=== PATIENT | male | born 2000 | race Caucasian/White ===

== ENCOUNTER 2021-07-04 07:33 | Inpatient (IN) | payer BC ==
--- NOTE | 2021-07-04 07:58 | ED ---
Psych HPI - General Chief Complaint: Psychiatric Symptoms Stated Complaint: mental health Time Seen by Provider: 07/04/21 07:41 Source: patient, family, police, RN notes reviewed Mode of arrival: ambulatory - History of Present Illness Initial Comments: This is a 20-year-old male with no apparent prior history of depression and suicidal thoughts to recently become disengaged from education pursues he dropped out of high school he recently quit his job and he was brought in by police after being away from his house all night and outside showing depressed and having suicidal thoughts. He's been taxing people to say goodbye. He does not seem to have a plan at this time for harming himself however. He denies any recent drugs or alcohol. Fevers chills nausea vomiting sweats except for feeling chilled right now from being outside all night. Current complaints or modifying factors. Patient was brought in by police and is been petitioned by his family. MD Complaint: suicidal ideation, feels depressed - Related Data Home Medications Medication Instructions Recorded Confirmed No Known Home Medications 07/04/21 07/04/21 Allergies Allergy/AdvReac Type Severity Reaction Status Date / Time No Known Allergies Allergy Verified 07/04/21 08:39 Review of Systems ROS Statement: Those systems with pertinent positive or pertinent negative responses have been documented in the HPI. ROS Other: All systems not noted in ROS Statement are negative. Past Medical History Past Medical History: No Reported History History of Any Multi-Drug Resistant Organisms: None Reported Past Surgical History: Adenoidectomy Past Psychological History: Anxiety, Depression Smoking Status: Never smoker Past Alcohol Use History: None Reported Past Drug Use History: Marijuana General Exam - General Exam Comments Initial Comments: Physical well-developed asthenic appearing male who is awake alert oriented 3 Limitations: no limitations General appearance: alert, in no apparent distress Head exam: Present: atraumatic, normocephalic, normal inspection Eye exam: Present: normal appearance, PERRL, EOMI. Absent: scleral icterus, conjunctival injection, periorbital swelling ENT exam: Present: normal exam, mucous membranes moist Neck exam: Present: normal inspection, full ROM. Absent: tenderness, meningismus, lymphadenopathy Respiratory exam: Present: normal lung sounds bilaterally. Absent: respiratory distress, wheezes, rales, rhonchi, stridor Cardiovascular Exam: Present: regular rate, normal rhythm, normal heart sounds. Absent: systolic murmur, diastolic murmur, rubs, gallop, clicks GI/Abdominal exam: Present: soft, normal bowel sounds. Absent: distended, tenderness, guarding, rebound, rigid Extremities exam: Present: normal inspection, full ROM, normal capillary refill. Absent: tenderness, pedal edema, joint swelling, calf tenderness Back exam: Present: normal inspection Neurological exam: Present: alert, oriented X3, CN II-XII intact Psychiatric exam: Present: depressed, flat affect, suicidal ideation Skin exam: Present: warm, dry, intact, normal color. Absent: rash Course Vital Signs 07/04/21 07:34 Temperature 97.8 F Pulse Rate 72 Respiratory 18 Rate Blood Pressure 143/88 O2 Sat by Pulse 98 Oximetry Medical Decision Making - Medical Decision Making The patient was evaluated by the EPS service she will be admitted for inpatient evaluation and treatment for depression and suicidal ideation he apparently did have a planned hurt himself with a knife he is a voluntary admission. - Lab Data Lab Results 07/04/21 Range/Units 07:56 Urine Opiates Screen Not Detected (NotDetected) Ur Oxycodone Screen Not Detected (NotDetected) Urine Methadone Screen Not Detected (NotDetected) Ur Propoxyphene Screen Not Detected (NotDetected) Ur Barbiturates Screen Not Detected (NotDetected) U Tricyclic Antidepress Not Detected (NotDetected) Ur Phencyclidine Scrn Not Detected (NotDetected) Ur Amphetamines Screen Not Detected (NotDetected) U Methamphetamines Scrn Not Detected (NotDetected) U Benzodiazepines Scrn Not Detected (NotDetected) Urine Cocaine Screen Not Detected (NotDetected) U Marijuana (THC) Screen Not Detected (NotDetected) Disposition Clinical Impression: Depression, Suicidal ideation Disposition: TRANSFER TO PSYCH HOSP/UNIT Condition: Stable Referrals: None,Stated [Primary Care Provider] - 1-2 days
[2021-07-04 08:26] LABS: Amphetamine Screen,Urine Not Detected (NotDetected); Benzodiazepines Screen,Urine Not Detected (NotDetected); Cocaine Screen,Urine Not Detected (NotDetected); Opiate Screen,Urine Not Detected (NotDetected); Phencyclidine Screen,Urine Not Detected (NotDetected); Tricyclic Antidepressant,Urine Not Detected (NotDetected); Urn Cannabinoid Scrn Not Detected (NotDetected)
[2021-07-04 08:27] LABS: Barbiturate Screen,Urine Not Detected (NotDetected); Methadone Screen, Urine Not Detected (NotDetected); Oxycodone Screen, Urine Not Detected (NotDetected)
[2021-07-04] MEDS ORDERED: MAGNESIUM HYDROXIDE 2,400 MG/10 ML CUP PO PRN (10:18)
[2021-07-04] MEDS ORDERED: ACETAMINOPHEN TAB 325 MG TAB PO PRN (10:18)
[2021-07-04] MEDS ORDERED: MAG HYDROX/AL HYDROX/SIMETH 30 ML CUP PO PRN (10:18)
[2021-07-04] MEDS ORDERED: haloperidoL 1 MG TAB PO PRN (10:20)
[2021-07-04] MEDS ORDERED: HALOPERIDOL LACTATE 5 MG/ML 1 ML VIAL IM PRN (10:21)
[2021-07-04] MEDS ORDERED: LORazepam 1 MG TAB PO PRN (10:21)
[2021-07-04] MEDS ORDERED: LORazepam 2 MG/ML INJ IM PRN (10:22)
[2021-07-04] MEDS ORDERED: MELATONIN 5 MG TABLET PO PRN (12:59)
[2021-07-04] MEDS: SERTRALINE 50 MG TAB PO SCH (13:09)
--- NOTE | 2021-07-04 13:09 | P.HP ---
Psychiatric H&P - . H&P Date: 07/04/21 History & Physical: Allergies Allergy/AdvReac Type Severity Reaction Status Date / Time No Known Allergies Allergy Verified 07/04/21 12:43 Vital Signs Temp 98.5 F 07/04/21 10:38 Pulse 65 07/04/21 10:38 Resp 18 07/04/21 10:38 BP 111/65 07/04/21 10:38 Pulse Ox 98 07/04/21 10:38 Intake & Output 07/03/21 07/04/21 07/04/21 18:59 06:59 18:59 Weight 58.695 kg Laboratory Last Values Urine Opiates Screen Not Detected (NotDetected) 07/04/21 07:56 Ur Oxycodone Screen Not Detected (NotDetected) 07/04/21 07:56 Urine Methadone Screen Not Detected (NotDetected) 07/04/21 07:56 Ur Propoxyphene Screen Not Detected (NotDetected) 07/04/21 07:56 Ur Barbiturates Screen Not Detected (NotDetected) 07/04/21 07:56 U Tricyclic Antidepress Not Detected (NotDetected) 07/04/21 07:56 Ur Phencyclidine Scrn Not Detected (NotDetected) 07/04/21 07:56 Ur Amphetamines Screen Not Detected (NotDetected) 07/04/21 07:56 U Methamphetamines Scrn Not Detected (NotDetected) 07/04/21 07:56 U Benzodiazepines Scrn Not Detected (NotDetected) 07/04/21 07:56 Urine Cocaine Screen Not Detected (NotDetected) 07/04/21 07:56 U Marijuana (THC) Screen Not Detected (NotDetected) 07/04/21 07:56 07/04/21 13:03 IDENTIFYING DATA: Patient is a 20-year-old male is currently single has no kids lives with his stepmom and dad in the house currently is attending school HPI: Patient presented to the hospital yesterday after apparently being picked up by the police for a texting his friends and family and telling them "goodbye". Patient was admitted to the psychiatric unit for further evaluation and treatment. He has no significant psychiatric history and no previous psyc hiatric admissions. Patient was fairly monotone and spoke in a soft tone of voice. He was guarded/evasive and had poor eye contact during the interview. He claims that he was having "problems with my family" however did not elaborate more on any stressors or significant triggers in his life. He states that he message saying goodbye and was planning to commit suicide yesterday at night. He states that he had planned to stab himself with a kitchen knife. He claims that he was in a park when this occurred and he told his family and they called the police and he got picked up and taken the hospital. He states that he did not do it because "it wasn't a good way to do it". His UDS was negative for any substances. He states that he is feeling depressed and anxious for the past 2 years and also was endorsing suicidal ideations for the past 2 years as well. He states his sleep has been "on and off" and states that his appetite has been fair. He claims that his father has guns in a safe locked away at home area and he claims that he is still having suicidal thoughts however no plan while on the unit. Patient denies any homicidal ideations intent or plan. At this time patient den ies any auditory or visual hallucinations. Patient denies any flight of ideas racing thoughts and increased in goal directed behavior. Patient admits to using no recreational drugs or cigarettes. PAST PSYCHIATRIC HISTORY: Patient states that he has a history of depression and anxiety. Patient denies being on any psychiatric medications. Patient denies any previous psychiatric hospitalizations. Patient denies any psychiatric outpatient follow-up. He states that once he tried to hang himself several years ago. PMH:denies ALLERGIES: as per EMR CHEMICAL DEPENDENCY HISTORY: as per HPI FAMILY PSYCHIATRIC/SUBSTANCE USE HISTORY: denies SOCIAL HISTORY: Patient was born and raised in [place]. He states that he is currently finishing up high school credits and is currently unemployed. He states that he has never been to detention before or long term. He claims that he lives with his stepmom and father. He is single and has no kids. MENTAL STATUS EXAM: General Appearance: Patient appears to be patient, tall, stated age is alert, guarded/evasive and uncooperative at times. Patient appears to have poor hygiene and grooming. Behavior: Patient is seated without any agitated behavior. Poor eye contact. Guarded Speech: Patient's speech is soft tone of voice. Fluent. Mood/Affect: Patient reports their mood is depressed and anxious, affect is congruent and constricted. Suicidality/Homicidality: Patient denies having any homicidal ideation intent or plan. He states that he is still having suicidal thoughts however no intent or plan. Perceptions: Patient denies any visual hallucinations and denies any auditory hallucinations Though content/process: Guarded/evasive. Argumentative at times. Poor insight. Memory and concentration: AOX3, grossly intact for the purposes of this session. Can spell "WORLD" backwards Judgment and insight: poor STRENGTHS/WEAKNESSES: strength is that patient is resilient. Weakness is that patient has poor judgment and is impulsive INTELLECT: average IMPRESSIONS: Major depressive disorder, recurrent, severe without psychotic features Anxiety disorder unspecified PLAN: -Patient is admitted under voluntary status to MHU for stabilization of psychiatric symptoms and safety. Patient has signed adult voluntary form and medication consent and is placed in patient's chart. -Medications : Will start patient on Zoloft 50 mg daily for mood/anxiety. Melatonin 5 mg daily at bedtime when necessary for insomnia. -Ativan and Haldol PRN for agitation/aggression -Patient was informed of the risks, benefits and side effects of the medication and patient verbally consented to taking the medications. Patient signed med consent form and was placed in chart. -Internal Medicine consult to perform medical evaluation and physical. -NRT - not needed as patient does not smoke -SW on board for discharge planning. Encourage patient to participate in groups to work on coping skills.
--- NOTE | 2021-07-05 04:52 | P.CONS ---
History of Present Illness - Reason for Consult Consult date: 07/06/21 - History of Present Illness Patient is a 20-year-old male with no known PMH who had been brought into the emergency room under police custody due to suicidal ideation and threats of harming himself. The patient was admitted to mental health unit where he was seen and evaluated. The patient reported that he does not have any physical complaints. He denied using tobacco, alcohol, or substance abuse. Further denied chest discomfort, shortness of breath, fever, chills, nausea, vomiting, abdominal pain, diarrhea. Review of systems: Pertinent positives and negatives as discussed in HPI, a complete review of systems was performed and all other systems are negative. Physical examination: General: non toxic, no distress, appears at stated age, underweight Derm: no unusual rashes/lesions no unusual ecchymoses, warm, dry Head: atraumatic, normocephalic, symmetric Eyes: EOMI, no lid lag, anicteric sclera, pupils equal round reactive to light ENT: Nose and ears atraumatic, no thrush, no pharyngeal erythema Neck: No thyromegaly, no cervical lymphadenopathy, trachea midline, supple Mouth: no lip lesion, mucus membranes moist Cardiovascular: S1S2 reg, no murmur, positive posterior tibial pulse bilateral, no edema, capillary refill less than 2 seconds Lungs: CTA bilateral, no rhonchi, no rales , no accessory muscle use Abdominal: soft, nontender to palpation, no guarding, no appreciable organomegaly, normal bowel sounds Ext: no gross muscle atrophy, muscle strength 5 out of 5 in all 4 extremities grossly, no contractures, Neuro: CN II-XI grossly intact, light touch intact all 4 extremities, finger to nose within normal limits, Psych: Alert, oriented, appropriate affect Assessment/plan Depression and suicidal ideation -As per psychiatry Past Medical History Past Medical History: No Reported History History of Any Multi-Drug Resistant Organisms: None Reported Past Surgical History: Adenoidectomy Past Anesthesia/Blood Transfusion Reactions: No Reported Reaction Past Psychological History: Anxiety, Depression Smoking Status: Never smoker Past Alcohol Use History: Rare Additional Past Alcohol Use History / Comment(s): Patient stated he drank 3 shots for first time recently, none since. Past Drug Use History: Marijuana Additional Drug Use History / Comment(s): Patient stated smoking marijuana about 4x/month, but none in the last year. - Past Family History Father History Unknown: Yes Family Medical History: Hyperlipidemia Medications and Allergies Home Medications Medication Instructions Recorded Confirmed Type No Known Home Medications 07/04/21 07/04/21 History Allergies Allergy/AdvReac Type Severity Reaction Status Date / Time No Known Allergies Allergy Verified 07/04/21 12:43 Physical Exam Vitals: Vital Signs Temp Pulse Pulse Resp BP BP Pulse Ox 07/04/21 10:38 98.5 F 65 18 111/65 98 07/04/21 10:35 97.6 F 65 18 108/54 100 07/04/21 07:34 97.8 F 72 18 143/88 98 Intake and Output 07/04/21 07/04/21 07/05/21 14:59 22:59 06:59 Other: Weight 58.695 kg Results CBC & Chem 7: 07/05/21 07:00
[2021-07-05 07:49] LABS: ALT 15 U/L (4-49); AST 24 U/L (17-59); African American GFR (CKD) >90 (>60 ml/min/1.73 sqM); Albumin 4.3 g/dL (3.5-5.0); Alkaline Phosphatase 90 U/L (38-126); Anion Gap 6 mmol/L; Blood Urea Nitrogen 16 mg/dL (9-20); Carbon Dioxide 28 mmol/L (22-30); Chloride 105 mmol/L (98-107); Glucose 99 mg/dL (74-99); Non-African American GFR(CKD) >90 (>60 ml/min/1.73 sqM); Potassium 4.7 mmol/L (3.5-5.1); Sodium 139 mmol/L (137-145); Total Bilirubin 0.9 mg/dL (0.2-1.3)
[2021-07-05] MEDS: SERTRALINE 50 MG TAB PO SCH (08:39)
--- NOTE | 2021-07-05 10:14 | P.PN ---
Progress Note - Text Progress Note Date: 07/05/21 Interval History: Patient was seen wandering the hallways and was directable and agreeable to miguelina haney with ticket writer in the office. Patient states that he just finished talking to his father over the phone and claims that the conversation went well and that it was good to hear from him however states that "he was wondering when I'll be discharged". Patient was fairly focused on discharge during conversation. He states that he is still having suicidal thoughts and claims that they occur mainly at nighttime. He was endorsing hopelessness and worthlessness today. He states that he is still feeling depressed and somewhat anxious today. He claims the he feels the medication has not been helping him thus far. He states that he was able to sleep fairly throughout the night. He claims that he went to one activity group yesterday and was encouraged to go to more groups today. He continues to still have superficial insight into his issues and was fairly guarded about his stressors and states that "it's embarrassing and had rather not say". At this time patient denies any suicidal or homical ideations, intent or plan. Patient denies any auditory, visual hallucinations and denies any paranoia or delusions. Patient denies any side effects from the medications and has been compliant with meds. Mental Status Exam: General Appearance: Patient appears to be patient, tall, stated age is alert, guarded/evasive and mildly more cooperative today. Patient appears to have improving hygiene and grooming. Behavior: Patient is seated without any agitated behavior. Poor eye contact. Guarded Speech: Patient's speech is soft tone of voice. Fluent. Mood/Affect: Patient reports their mood is depressed and anxious, affect is congruent and constricted. Suicidality/Homicidality: Patient denies having any homicidal ideation intent or plan. He states that he is still having suicidal thoughts however no intent or plan. Perceptions: Patient denies any visual hallucinations and denies any auditory hallucinations Though content/process: Guarded/evasive. Less argumentative today. Poor insight. Focused on discharge. Memory and concentration: AOX3, grossly intact for the purposes of this session. Judgment and insight: Superficial/poor. Assessment Major depressive disorder, recurrent, severe without psychotic features Anxiety disorder unspecified Plan: -Patient continues to meet criteria for inpatient psychiatric admission for symptom stabilization and safety. Patient has signed adult voluntary form and medication consent and was placed in patient's chart. -Medications: Continue with Zoloft 50 mg daily for mood/anxiety with an increase to 100 mg starting on Thursday. Melatonin 5 mg daily at bedtime when necessary for insomnia. -When necessary Ativan and Haldol for agitation/aggression. -NRT - not needed as patient does not smoke -SW on board for discharge planning. Encouraged the patient to participate in milieu. likely discharge next week once patient improves psychiatrically. SW to gather further info from parents and ensure that guns/weapons are locked away.
[2021-07-06] MEDS: SERTRALINE 50 MG TAB PO SCH (08:09)
[2021-07-06] MEDS ORDERED: SERTRALINE 50 MG TAB PO ONE (09:00)
--- NOTE | 2021-07-06 17:20 | PN ---
PROGRESS NOTE DATE OF SERVICE: 07/06/2021. CHIEF COMPLAINT: The patient was admitted after making statements that he had suicidal thinking. He had a plan to stab himself with a kitchen knife. He had been sending messages to friends and family about his potential passing. INTERVAL HISTORY: Patient has been doing fair. He had a quiet day yesterday. He comes out on the unit. He will interact with others. He attended groups yesterday. He seems to engage in a reasonable way in the groups, though he tends to have a quiet manner. He has not had any specific complaints or concerns. Staff documented he slept 5 hours last night. Today he has been up. Overall he seems to be doing about the same. When I reviewed his history it is noteworthy that he describes that he has had suicide thoughts over a number of years. How he describes it is somewhat unusual. He says he has plans of suiciding, though he has not been sure when he would do it. He says some of the time he has had thoughts that he would get out in the world and do some certain activities and engage in things and then when that is completed, he would then follow through with his plan. He said at one point he had thought about joining the and that he would defer trying to kill himself until after he completed service. He said after thinking about that for a while, he decided there was not a good reason to wait for this eventuality. He acknowledges that in recent times the thoughts have been a little bit more intense and active. He was vague about where some of these thoughts might come from, though was at one point able to acknowledge that there have been some stressful issues in his past and that this stress relates to this kind of thinking. He stated that he was not inclined to talk about it and says that no one knows anything about it other than one friend to whom he has revealed a certain portion of the issues, but not beyond that. Apparently he had a visit from his father today, and his father shared with nurses at the end of the visit that the father was in a quandary, trying to understand where these thoughts come from that the patient has. The patient lives with his father and stepmother. It is noted that his stepmother wrote a 3-page typed letter to him expressing her concern and care for him. He felt the letter was quite a positive. He allowed me to read the letter and it was quite an open process where she talked about her own depression issues. There was some suggestion that his biologic mother may have had some difficulties. The patient himself said that he had gone for a number of years where he had no contact with his biologic mother at all, though he says they are back in some touch and it seems to be an adequate situation. He currently has been living with his father and stepmother. He says he is comfortable in the home. He has dropped out of school and says he only has a few courses left to complete his high school diploma, though he is unclear whether or not he has any interest in doing that. He says he has no interests in the future. He does not have any goals or aspirations. When I reviewed issues relating to whether he has been showing depression symptoms, he tends to minimize any symptoms that he has had. He says he sleeps 8 hours a day. He has a normal appetite. He has reasonable energy. He has not had significant anxiety or panic symptoms. He was vague about whether he may experience any posttraumatic symptoms. He denies any thought disorder issues. There are questions about issues of motivation and interest which may be depression-related. He says that he is skeptical about being on an antidepressant medication and anticipates that when he is discharged, he would not continue taking the medicine. He says he does not believe in medications and otherwise generally believes in holistic processes. He does not identify any side effects or problems relating to his Zoloft. MENTAL STATUS: Patient sat with some restlessness. He gave fairly good eye contact. He answered questions with brief responses. His thoughts were clear. He had a fairly calm though reserved manner. His affect was somewhat constricted. His mood appeared to be dysphoric, though it was difficult to determine if he was showing significant signs of depression. It was hard to assess his degree of distress. There was no immediate evidence for thought disorder other than the overall presentation of his suicide thinking. He continues to voice thoughts of harm to himself. Cognition is clear. ASSESSMENT: I will continue the current diagnosis and treatment plan. I will continue Zoloft 100 mg a day. There might be consideration for starting an antipsychotic medication, given that his manner and process relating to suicidal thinking does seem to move beyond a reality-based process. We will set up a family meeting with the patient and his father tomorrow at 1 p.m. Whether or not there are underlying PTSD issues related to the stress that he chooses not to discuss remains to be seen. We will focus on stabilization and discharge planning. SCARLETT / BORISN: [id number] /
[2021-07-07] MEDS ORDERED: SERTRALINE 100 MG TAB PO SCH (09:00)
--- NOTE | 2021-07-07 21:40 | PN ---
PROGRESS NOTE DATE OF SERVICE: 07/07/2021 CHIEF COMPLAINT: The patient was admitted after making statements that he had suicidal thinking. He had a plan to stab himself with a kitchen knife. He had been sending messages to friends and family about his potential passing. INTERVAL HISTORY: Patient has been doing fairly well. He had a quiet day yesterday. He comes out on the unit. He interacts with others. He tends to have a quiet manner. He is appropriate in his interaction with staff and peers. He has been attending groups. He slept well last night. Today he has been up. He continues the same. I had a family meeting with the patient and his father. It is noted that the father is aware of the patient's thought about suicide. This is a new revelation that the father learned, even though the patient has had thoughts this way for quite some time. From the father's standpoint, he said that he has no understanding of why the patient makes these kinds of statements, noted that the patient made suggestions that there were some trauma issues in his life that may be an impact on his situation. The patient was quite adamant about the idea that he did not want to talk to his father, myself or anyone else about the situation. He says he has shared some details with one friend, though has not talked to anyone at length about these issues. The patient acknowledges that there are some stress issues in his past that likely cause him to have some flashbacks and recurring thoughts of distress. In the meeting the patient was vague as to how active these thoughts are currently. He seemed to make at least some indications that there is some persistence of the thoughts of suicide. We had an extensive discussion regarding issues of discharge planning and what would be appropriate followup. I reviewed issues with the patient and his father as to treatment options for things such as posttraumatic stress disorder. We reviewed medications versus therapy. The patient was very much wanting to not take medications. He did not offer much explanation as to his concern about medications, though mostly would repeat the idea that he wanted to do things "naturally." When I discussed options for psychotherapy, the patient did say he was willing to be referred for therapy and that he would commit himself to going to weekly sessions for 4 sessions and see from there if he felt there was value in the therapy. It is noted that the patient's father was fairly assertive around the idea that he should talk to therapists about the issues he keeps to himself. He encouraged him to do this while he was on the psychiatric unit as well as if he were to see a psychologist. In the conversation, the patient made references to some "trauma," but would say no more about it. He did seem to suggest he was harassed or teased as a child. Whether or not that is a significant issue is unclear. Father noted he had a significant focus on wanting to gain weight, as he was quite thin. The patient also made some references to "body type," but would say no more. He talked about wanting to get training in boxing, in part as an interest and in part as something for personal protection. Hs father noted that he has issues where he will not wear a T-shirt in the summer but will only wear sweatshirts or hoodies. The father was in agreement with the idea of his getting referred for outpatient therapy as opposed to taking medications. The patient was not reporting any problems or difficulties with the medicine that he has been taking, though he did not feel it has been helpful. MENTAL STATUS EXAM: Patient gave fairly good eye contact. Psychomotor activity was a little restless. He answered questions appropriately. His thoughts were clear. He was spontaneous and interactive. His affect was fairly broad. His mood was even. He did not appear to be significantly distressed. There was no indication of thought disorder. The patient continued to make references to the idea of having thoughts about suicide, though would not discuss directly. He was oriented and alert. ASSESSMENT: I will continue the current diagnosis. I would consider a diagnosis of probably dysmorphic disorder, given some of the issues that were brought up during the family meeting. At this point, I will discontinue psychotropic medications as per patient request. We will look at options for referral for individual psychotherapy, given that the patient continues to show indications that thoughts of suicide or self-harm persist. I would look at giving him two days on the psychiatric unit to process some of the issues we discussed, especially those at the family meeting. I would get things lined up for him for a referral for individual psychotherapy and make efforts to be clear he is willing to commit himself as noted above. I would anticipate discharging the patient probably on Thursday for outpatient followup. MMODL / IJN: [id number] / YANG
[2021-07-08 07:10] VITALS: TEMP 98.1
--- NOTE | 2021-07-08 10:48 | PN ---
PROGRESS NOTE DATE OF SERVICE: 07/08/2021 CHIEF COMPLAINT: The patient was admitted after making statements that he had suicidal thinking. He had a plan to stab himself with a kitchen knife. He had been sending messages to friends and family about his potential passing. INTERVAL HISTORY: The patient has been doing fairly well overall. He comes out on the unit. He interacts with others. He attends groups. He said he did not sleep well last night because his roommate was fairly noisy. He ended up not taking medications yesterday as per the treatment plan. Today he has been up. Overall he says he does not feel any difference being off the medication. We again talked at length about a referral to psychotherapy. He continues to say he is willing to make the commitment for one month. I talked to him about the idea that it would be difficult for us to make any prediction about whether or not he would have suicidal thoughts in [address] or [address]. His response to that was that he anticipates that he would likely have those thoughts in 3 months. I discussed the potential benefits of psychotherapy and the best approach for him. MENTAL STATUS: Patient sat with a little restlessness. He gave fairly good eye contact. He answered questions appropriately. His thoughts were clear and coherent. He was interactive. His affect was a little constricted and somewhat anxious, his mood reserved though not clearly down or depressed. He did not appear to be significantly distressed. There was no indication of thought disorder. Cognition was clear. ASSESSMENT: I will continue the current diagnosis and treatment plan. As noted, given that the patient has persistent chronic suicide thinking, we need to have some caution in regard to discharge planning. As I shared with the patient, I believe the best we can do at this point is to get him connected to a therapist with his commitment that he would go to 4 sessions. Beyond that, things are unpredictable. I provided him with handouts on body dysmorphic disorder. I did not discuss in any way, though suggested he look at two [employer] videos that I presented which are from the [employer]. There is a possibility that if this is a significant issue for him that he would very likely not be able to talk about it in any direct way, at least at any time in the near future. On the other hand, if he does relate to this, the handout and videos that he could watch could be significant supports for him and give him some guidance and direction regarding this. There is the possibility that this disorder may be the critical issue for the patient. At this point I continue to anticipate discharge on Thursday. We will be looking towards setting up a positive therapy situation for the patient. SCARLETT / BRIT: [id number] /
[2021-07-09 06:45] VITALS: BP 124/59; PULSE 58; RESP 18
[2021-07-09 12:34] VITALS: BMI 16.5
--- NOTE | 2021-07-09 14:55 | PN ---
PROGRESS NOTE DATE OF SERVICE: 07/09/2021. CHIEF COMPLAINT: The patient was admitted after making statements that he had suicidal thinking. He had a plan to stab himself with a kitchen knife. He had been sending messages to friends and family about his potential passing. INTERVAL HISTORY: Patient has been doing fair. He had a quiet day yesterday. He comes out on the unit. He seems to be fairly social with others. He presents in an energetic manner. He has attended groups and seems to show good engagement in the groups. He had not been making any statements about self-harm. He slept well last night. Today he has been up. He seems to be doing about the same. He is focused on discharge tomorrow. When we talked about his thoughts relating to suicide, he continues to acknowledge that those thoughts persist. He says that he does not have any immediate intent nor does he have a plan in that regard. He does say that he has been thinking more about things that he could get engaged in and has pretty much revitalized his thoughts about the [employer]. He said that while he does not feel he has much in his own life to think about, he says that he can see there would be positives to being in a place like the where he has some the opportunity to do something significant for others. He says that he expects when he gets home that his parents may be somewhat vigilant about any issues with him as far as self-harm. He said they made not let him be in the basement. He was somewhat unclear about that. Seemed to suggest that they might not want him spending time by himself. He says that is something that he does. He continues to talk about the idea that he wants to gain weight. When I asked about the issues relating to handouts regarding body dysmorphic disorder, he says he does not think it really fits him, then he said though maybe just to a small percentage. He says he imagines that it affects everyone. He says maybe he thinks about once a day, but does not spend too much energy on those thoughts. I asked him about options for school and/or work. He said he does feel there is some obligation for finishing school partly because he knows he needs a high school diploma in order to do something like a going to the [employer]. He said that in regard to this hospitalization, he may need to sign a waiver in order to be accepted. He is going to look into making a contact with a attorney recruiter upon discharge. MENTAL STATUS EXAM: Patient sat with a little restlessness. He gave fairly good eye contact. He answered questions appropriately. His thoughts were clear, coherent and goal-directed. He was spontaneous and interactive. He was fairly thoughtful on a number of subjects that we discussed. It was noteworthy that he seemed quite engaged in the conversation and continued to talk about several issues for a fair period of time. His affect was a little constricted though not significantly so. He had a thoughtful reserved manner. He did not appear to be depressed. He did not seem distressed in any way. There was no indication of thought disorder. He continues to voice ideas about committing suicide. He is able to say that he does not have any immediate impulse in that regard. He is not able to give much detail as to what would lead him in that direction or what might be precipitating factors. It is noteworthy that he seemed to indicate a number of thoughts he has of things he would be doing when he gets out of the hospital that would be a positive positives in his life. He is oriented and oriented and alert. ASSESSMENT: I will continue the current diagnosis and treatment plan. We are setting up followup for the patient to be engaged in individual psychotherapy. I also discussed with the patient that there might be group options as well. We discussed group therapy that would be a longer-term therapy could be helpful for some people in terms of addressing more significant issues and life in a setting with others who may provide support or avenues of opening up about their own thoughts and emotions. We will make contact with the family in regard to safety issues at home. I anticipate discharging the patient tomorrow. SCARLETT / BRIT: [id number] /
[2021-07-09 16:12] LABS: Basophils # (A) 0.1 k/uL (0-0.2); Basophils % (A) 1 %; Eosinophils # (A) 0.1 k/uL (0-0.7); Eosinophils % (A) 2 %; HCT 46.2 % (39.0-53.0); HGB 15.3 gm/dL (13.0-17.5); Lymphocytes # (A) 1.4 k/uL (1.0-4.8); Lymphocytes % (A) 23 %; MCH 30.2 pg (25.0-35.0); MCHC 33.1 g/dL (31.0-37.0); MCV 91.1 fL (80.0-100.0); Mean Platelet Volume 7.4; Monocytes # (A) 0.4 k/uL (0-1.0); Monocytes % (A) 7 %; Neutrophils # (A) 4.1 k/uL (1.3-7.7); Neutrophils % (A) 66 %; Platelet Count 231 k/uL (150-450); RBC 5.07 m/uL (4.30-5.90); RDW 12.7 % (11.5-15.5); WBC 6.3 k/uL (4.0-11.0)
--- NOTE | 2021-07-10 12:26 | DS ---
DISCHARGE SUMMARY DATE OF SERVICE: 07/10/2021, DATE OF ADMISSION: 07/04/2021, DATE OF DISCHARGE: 07/10/2021 ADMISSION DIAGNOSES: 1. Major depressive disorder, recurrent, severe, without psychotic features. 2. Anxiety disorder, unspecified. DISCHARGE DIAGNOSES: 1. Persistent suicidal thinking without a clear plan. 2. Anxiety disorder. 3. Rule out body dysmorphic disorder. HISTORY OF PRESENTING ILLNESS: The patient is a 20-year-old male, he lives with his father and stepmother. He presented to the hospital apparently picked up by police as he was texting friends and family telling them "goodbye." The patient indicated that he has had thoughts of killing himself for a number of years. He says he has contemplated doing it at different times. He says that he had the idea that he would engage in some productive activity in his life, though then when that would be completed, he then would kill himself. His last thought in that direction was that he would join the [employer] and then when he got out of the [employer] he could kill himself. He said more recently he just made a decision that why should he wait until he gets out of the [employer] and why not just kill himself now. He apparently was found at home with kitchen knives. When asked about the nature of his suicidal thinking and where it comes from, he said that he does have some trauma in his life, though he chose not to discuss it. He said that he has only talked to 1 person and told a friend of his a few details about the trauma, though not much. He said other than that he has not told anybody and at this point will not talk about it to anyone. He has not had a prior psychiatric hospitalization. He has not been on any psychotropic medications. He was vague about whether he was having any current mental health symptoms. He said he was sleeping and eating okay. He did seem to have long-term issues with body image and that he would want to gain weight that was a difficult thing for him. He denied hallucinations, delusions, or paranoia. He was not indicating any significant panic issues, though he did seem to indicate that he had some posttraumatic issues related to the trauma that he would not talk about. He was admitted for further evaluation. PAST MEDICAL HISTORY: Unremarkable. FAMILY AND SOCIAL HISTORY: The patient is currently just a few credits short of graduating from high school. He is currently unemployed. He is single with no children. He lives with his father and stepmother. Apparently in his childhood at one point, his mother stopped having contact with him and this went on for a number of years. He is in touch with his biologic mother. He says that he has good relationships with his father and stepmother. MENTAL STATUS EXAM: The patient presented with poor hygiene and grooming. He had normal psychomotor activity. Speech was soft and fluent. Mood was depressed. He had anxious manner. Affect was constricted. There was no indication of thoughts of harm to others. He continued to report suicide thoughts without intent or plan. He was denying issues of thought disorder. He was oriented and alert. COURSE OF HOSPITALIZATION: Patient was admitted for comprehensive medical psychiatric and psychosocial evaluation. We engaged the patient in individual and group therapeutic activities. On admission the patient was started on Zoloft 50 mg a day. Early on in his hospitalization, the patient was somewhat withdrawn. He would come out in the day area. He would interact with others. He tended to have a quiet manner. He did attend groups. He was quite insistent on the idea that he would not take medications once he was discharged. He said he did not see any reason for medications. It is noteworthy that any extensive discussions with the patient, he described that he has had persistent suicide thoughts and said that at some point in his life in the future whether it is in the near future or a farther down the road, he anticipates that he would kill himself. He was not able to provide much information as to why he has these thoughts and why he does not seem to have any idea about future goals or plans. We had a family meeting with the patient's father. Father was stating that just of late he began hearing about the patient's statement about suicide. The father was not able to offer any ideas as to where the thoughts come from. In the family meeting as well as elsewhere, there did seem to be indications that the patient was perhaps harassed and teased as a child. Father speculated that may have been for his body image as he was quite thin and had always talked about needing to gain weight. Father noted that it was an unusual situation of late that he will never go out in the summertime in a T-shirt, always chooses to wear a sweatshirt or hoodie. Father speculated that this also are related to struggles he has with body image. The patient in the family meeting again acknowledged that there were some trauma issues, though he was quite clear that he would not talk about it to his father and other family members or while he was on the psychiatric unit. He was provided information about the diagnosis of body dysmorphic disorder. Also information was provided to the patient's father in that regard as well. On the day prior to discharge, I had an extensive discussion with the father on the telephone regarding discharge planning issues. We talked about the critical need for a home safety evaluation. Father did say that there were guns in the house, though that he keeps the guns locked up. I advised the father to be sure that no medications could be available for the patient including [id number] medications especially such as Tylenol which are highly dangerous. I also discussed that given his issue with having a kitchen knife that sharps in the kitchen be locked up as well. Father indicated that he would be able to do a good safety evaluation at home. For the patient's standpoint while he said that he did not want to be on medications, he was willing to commit himself to going to individual psychotherapy on a weekly basis and that he would be willing to make 4 appointments. I discussed with the patient as well as with the treatment team that given long-term persistence in having suicide thoughts that the patient has and also his on willingness to explore these issues in any direct way, it seemed like the best thing that we could do at this point would be to have him make a commitment for limited amount of therapy. It would be highly unpredictable that we could get a more extensive commitment from the patient in regard to treatment. It would be critical that hospital records be provided to the therapist for benefits of gaining some insights about the patient's thinking. It is noteworthy that towards the end of the hospital stay, the patient was again talking about getting in touch with a navigation teacher and that he would consider joining the [employer] He understood in some information that he received from a navigation teacher that he would need to sign a waiver relating to mental health issues given his hospitalization. The patient said that he was willing to do that. He said that while he does not have any clear aspirations for himself, he thought that he could have some positive feelings about being in service where he was giving help to others. As his hospitalization progressed, the patient showed a broader range of affect. He seemed to become more social. He showed a fairly energetic manner. He seemed to be in a quite good mood. CONDITION AT DISCHARGE: Patient was stable. His mood was improved. He voiced no immediate thoughts or intent around self-harm, though continues to acknowledge persistent thoughts of suicide. He was able to make statements that he could defer any action in this regard at present. RECOMMENDATIONS AND FOLLOWUP: Patient is not discharged on any psychotropic medications. The patient made a clear commitment that he would attend four weekly therapy sessions and that beyond that he could then make a decision about the benefits of therapy as noted above. He was also given some extensive information in regard to body dysmorphic disorder, which seemed to be a potential issue that the patient faces. SCARLETT / BRIT: [id number] /
== END 2021-07-10 12:06 | disposition home or self-care (01) | DRG 885 ==
LOC: EC 07:33 → 3MHU 10:16
PROVIDERS: ADMIT Psychiatry & Neurology Psychiatry; ATTEND Psychiatry & Neurology Psychiatry
DX: F33.2 Major depressive disorder, recurrent severe without psychotic features (principal); R45.851 Suicidal ideations; F41.9 Anxiety disorder, unspecified; F45.22 Body dysmorphic disorder; Z56.0 Unemployment, unspecified
CPT/HCPCS: 80053; 80306; 82075; 85025; 99285